=== PATIENT | female | born 1960 | race Two or more races ===

== ENCOUNTER 2016-08-15 11:13 | Emergency (ER) | payer MEDICAID ==
[~2016-08-15] VITALS: Ht 154.9 cm; Wt 79.4 kg
[2016-08-15 13:26] VITALS: BP 144/84
== END 2016-08-15 14:01 | disposition home or self-care (01) ==
LOC: ER 11:14
DX: I10 Essential (primary) hypertension (principal); Z76.0 Encounter for issue of repeat prescription; G89.29 Other chronic pain; M54.9 Dorsalgia, unspecified; E78.5 Hyperlipidemia, unspecified; E07.9 Disorder of thyroid, unspecified
CPT/HCPCS: 93005